=== PATIENT | female | born 1935 | race Caucasian/White ===

== ENCOUNTER 2023-06-24 11:25 | Observation (INO) | payer OTHER, SELFPAY ==
[2023-06-24] VITALS (24 sets, daily range): BP systolic 100–145; BP diastolic 68–117; PULSE 70–164; RESP 13–26; TEMP 36.4–36.6; O2SAT 94–100
--- NOTE | ~2023-06-24 | XR_ITS ---
EXAMINATION: XR chest 2V DATE: 06/24/2023 12:59 INDICATION: Shortness of breath and pneumonia TECHNIQUE: PA and lateral views of the chest were obtained. COMPARISON: None FINDINGS: Small bilateral pleural effusions with associated atelectasis and/or pneumonia in the bilateral lower lung zones. No pulmonary edema in the aerated portions of the lungs. No pneumothorax. Cardiomegaly. Calcified mediastinal lymph nodes consistent with old granulomatous disease. Moderate S-shaped scolio sis of the thoracic and lumbar spine with moderate thoracic and moderate to severe lumbar spondylosis . IMPRESSION: 1. Small bilateral pleural effusions with associated bibasilar atelectasis and/or pneumonia. 2. Cardiomegaly. Reviewed, dictated and finalized at location A. OR [employer]CH[employer] IMPRESSION: 1. Small bilateral pleural effusions with associated bibasilar atelectasis and/ or pneumonia. 2. Cardiomegaly.
[2023-06-24 11:57] LABS: Basophils Absolute Auto 0.1 K/mm3 (0.0-0.1); Basophils Percent Auto 0.6 % (0.2-1.2); Eosinophils Absolute Auto 0.1 K/mm3 (0-0.3); Eosinophils Percent Auto 0.7 % (0-4.4); Hematocrit 39.5 % (37.0-47.0); Hemoglobin 12.8 g/dL (12.0-15.0); Immature Granulocyte Absolute 0.04 K/mm3 (0.00-0.031); Immature Granulocyte Percent A 0.4 % (0-0.5); Lymphocytes Absolute Auto 1.06 K/mm3 (0.9-3.2); Lymphocytes Percent Auto 11.9 % (18.3-44.2); Mean Corpuscular HGB Conc 32.4 g/dl (32-36); Mean Corpuscular Hemoglobin 31.8 pg (26-34); Mean Platelet Volume 10.3 fl (7.4-10.4); Monocytes Percent Auto 10.7 % (2.6-8.5); Neutrophils Absolute Auto 6.8 K/mm3 (1.3-6.7); Neutrophils Percent Auto 75.7 % (45.5-73.1); Platelet Count Result 180 k/mm3 (150-375); Red Blood Count 4.03 M/mm3 (4.2-5.4); Red Cell Distribution Width 12.6 % (11.5-14.5); White Blood Count 8.9 K/mm3 (4.5-10.0)
[2023-06-24 12:07] LABS: Alanine Aminotransferase 44 U/L (6-35); Albumin Level 3.9 g/dL (3.5-5.1); Alkaline Phosphatase 89 U/L (38-126); Anion Gap 12 mmol/L (8-16); Aspartate Amino Transferase 39 U/L (14-36); Blood Urea Nitrogen 12 mg/dL (7-17); Calcium 9.2 mg/dL (8.4-10.2); Carbon Dioxide 21 mmol/L (22-30); Chloride 101 mmol/L (98-107); Estimated CRCL calculation 38 ml/min; Estimated Glomerular Filt Rate > 60; Glucose 148 mg/dL (65-110); Potassium 4.3 mmol/L (3.4-5.0); Sodium 134 mmol/L (137-145)
--- NOTE | 2023-06-24 14:05 | ED.SOB ---
HPI - SOB/Dyspnea General Chief Complaint: Shortness of Breath/Dyspnea Stated Complaint: Can't breath Time Seen by Provider: 06/24/23 14:01 Source: patient and family ( son) Limitations: no limitations History of Present Illness HPI Narrative: This is a 88-year-old female presents with complaint of difficulty breathing. Patient states this has been ongoing for the past week. She went to [facility] urgent care and was diagnosed with pneumonia. She was prescribed a 10 day course of Augmentin which she started on Sunday. She initially noticed some improvement but then seemed to be worsening again. She denies any history of pneumonia, no recent antibiotic usage, is not on an H2 enedelia or PPI. She denies any associated chest pain or fevers. She does have difficulty lying flat in addition to shortness of breath both occasionally at rest as well as on exertion. She denies any paroxysmal nocturnal dyspnea. She has had a nonproductive cough. General she has been having fatigue associated with this denies any myalgias. No underlying respiratory conditions. Does not follow with a data support specialist or cardiothoracic surgeon though has a known mitral valve regurgitation. She does note that she has not yet taken her lisinopril or hydrochlorothiazide today. she denies any lower extremity edema. PCP is through [facility]. Related Data Allergies Allergy/AdvReac Type Severity Reaction Status Date / Time No Known Allergies Allergy Mild Verified 06/24/23 14:05 [facility] Past Medical History Medical History (Updated 06/24/23 @ 18:12 by Brenda Howard MD) Hypertension Mitral valve regurgitation Exam Narrative: GENERAL: Well-appearing, well-nourished, and in no acute distress. appears younger than stated age HEAD: Normocephalic, atraumatic. EYES: no scleral icterus or injection ENT: Nares clear, no rhinorrhea or epistaxis. NECK: Supple. no meningismus CHEST: Lung sounds diminished at the left base. No respiratory distress. speaking in full sentences. HEART: Tachycardic irregularly irregular rhythm. Systolic Murmur heard. Normal peripheral pulses except for being irregularly irregular. ABDOMEN: Soft, nondistended, EXTREMITIES: Normal range of motion. No edema. SKIN: Warm, dry, no rash. NEURO: No focal deficits. Alert and oriented x3. PSYCH: Normal mood and affect. Course Vital Signs Vital signs: Vital Signs Temperature 97.6 F 06/24/23 11:39 Pulse Rate 70 06/24/23 11:39 Respiratory Rate 20 06/24/23 11:39 Blood Pressure 144/99 H 06/24/23 11:39 Pulse Oximetry 97 06/24/23 11:39 Oxygen Delivery Room Air 06/24/23 11:39 Temperature 97.6 F 06/24/23 11:39 Pulse Rate 113 H 06/24/23 16:30 Respiratory Rate 20 06/24/23 16:30 Blood Pressure 137/98 H 06/24/23 16:30 Pulse Oximetry 98 06/24/23 16:30 Oxygen Delivery Room Air 06/24/23 14:00 MDM - SOB/Dyspnea MDM Narrative Medical decision making narrative: This is an 88-year-old female who presents to the emergency department with concern for nonproductive cough and difficulty breathing of 1 week's duration. She was diagnosed with pneumonia earlier this week at an urgent care and prescribed a 10 day course of Augmentin which she started on Sunday with initial improvement but now worsening. She is also having orthopnea but denies any paroxysmal nocturnal dyspnea. No chest pain fevers. Chest x-ray shows pneumonia with associated pleural effusion. DRIP Score - predicts risk for CAP d/t drug-resistant pathogens Antibiotic use within 60 days (No 0, Yes +2): 0 terminal supervisor care resident (No 0, Yes +2): 0 Tube feeding (No 0, Yes +2): 0 Prior drug-resistant pneumonia Dx within 1 year (No 0, Yes +2): 0 Hospitalization within 60 days (No 0, Yes +1): 0 Chronic pulmonary disease (No 0, Yes +1): 0 Poor functional status (No 0, Yes +1): 0 H2 enedelia or PPI within 14 days (No 0, Yes +1): 0 Active wound care at time of admission (No 0, Yes +1): 0 M
--- NOTE | 2023-06-24 14:14 | ECG_ITS ---
Measurements Intervals [place] Rate: 162 P: SD: 0 QRS: -8 QRSD: 87 T: 15 QT: 270 QTc: 443 Interpretive Statements ATRIAL FIBRILLATION WITH RAPID VENTRICULAR RESPONSE ABNORMAL RHYTHM ECG NO PREVIOUS ECG AVAILABLE FOR COMPARISON Electronically Signed On 06-25-2023 13:03:53 COMPUTER INSTRUCTOR by Paul Sheehan M.D.
[2023-06-24] MEDS: dilTIAZem HCl INJ 25 MG/5 ML VIAL 15 MG IV PUSH (14:37)
[2023-06-24 15:00] LABS: NT Pro B Type Natriuretic Pept 2620 pg/mL (19.9-100); Troponin I < 0.012 ng/mL (0.000-0.034)
[2023-06-24 15:11] LABS: Influenza A QL RT-PCR Negative (Negative); Influenza B QL RT-PCR Negative (Negative); RSV RNA, RT-PCR Negative (Negative); SARS-CoV-2 RNA PCR Negative (Negative)
[2023-06-24] MEDS: dilTIAZem HCl INJ 25 MG/5 ML VIAL IV PUSH (16:00)
[2023-06-24] MEDS: FUROSEMIDE INJ 40 MG/4 ML VIAL 20 MG IV PUSH (16:35)
[2023-06-24] MEDS: AZITHROMYCIN 500 MG/NS 250 ML 500 MG/250 ML BAG 250 MG IVPB (17:00)
--- NOTE | 2023-06-24 20:24 | ADMGEN ---
This patient, Cris Díaz, was admitted to IMU Room 205-02. Patient/family oriented to hospital policies and general routines including ID bracelet, bed and alarms, visiting hours, pain management, procedures, bathroom and other care routines, personal items, smoking policy, room service/diet, and visiting hours. Information on how to activate the Rapid Response Team has been discussed. Patient/Family are encouraged to report perceived risks to care and to ask questions if they do not understand what they are told or what they should do.
[2023-06-24] MEDS: APIXABAN 5 MG TABLET PO (20:53)
[2023-06-24] MEDS: dilTIAZem HCL 12 HR 60 MG CAP.12HR PO (20:53)
[2023-06-24] MEDS: dilTIAZem 100 MG/100 ML 100 MG/100 ML BAG IV CONT (22:59)
[2023-06-25] VITALS (20 sets, daily range): BP systolic 91–130; BP diastolic 62–95; PULSE 75–129; RESP 16–19; TEMP 36.5–36.9; O2SAT 94–98
--- NOTE | 2023-06-25 00:13 | PM.IMHP ---
H&P: HPI History of Present Illness Date/Time: 06/24/23 22:00 Chief Complaint: Shortness of breath. Narrative: This is a very pleasant 88-year-old female with hypertension and mitral valve regurgitation who presented to the emergency department via private vehicle for evaluation of shortness of breath. The patient provides the following history. She has not been feeling well for nearly 3 weeks with respiratory symptoms. She was seen at [facility] urgent care this past Sunday at which time she was diagnosed with pneumonia and was prescribed a 10 day course of Augmentin. She initially thought she was improving however the last several days she has become increasingly short of breath with lesser and lesser exertion. She also reports having difficulties lying flat due to shortness of breath and she has been having to sit up to sleep the last few days. She has feelings of anxiety which she thinks is due to the shortness of breath. She denies fever, syncope, near syncope, exertional chest pain, palpitations, sensations of racing heart, pleuritic pain, nausea, vomiting, sweats, edema, and calf pain. On arrival to the ED she was found to be in atrial fibrillation with rapid ventricular response. She received diltiazem IV push improvement in her rates. ED physician discussed the case with the on-call greenhouse worker who recommended starting her on anticoagulation and p.o. diltiazem. She is being admitted in this setting for further workup. With further questioning she reports drinking 2 cups of coffee a day and between 2 to 3 alcoholic beverages a day. She denies any drinking since supplements. She has no known history of thyroid disease. She denies concerns for sleep apnea. Review of Systems Review of Systems: Twelve systems were reviewed and are negative except for as per HPI. [facility] Past Medical History Medical History (Updated 06/25/23 @ 00:20 by Trini Liu PA-C) Hypertension Mitral valve regurgitation Surgical History Surgical History (Updated 06/25/23 @ 00:18 by Trini Liu PA-C) No history of major surgery within 1 month Family History Family History (Updated 06/25/23 @ 00:18 by Trini Liu PA-C) Other Family history non-contributory Social History Social History (Updated 06/25/23 @ 00:18 by Trini Liu PA-C) Social History: Surrogate medical decision maker: Lonny Díaz, son. Code status: Full code. Smoking status: Never smoker Alcohol intake: current Drinks per week: 14 Substance use: never Substance use type: does not use Lack of Transportation: No Lack of Food: Never True Current Housing: I Have Housing Concerned About Future Housing: No Difficulty Paying Gas/Electric Bills: No Difficulty Paying for Meds: No Currently Unemployed: No Education: Bachelor's Degree Difficulty w/ Childcare or Family Care: No Spiritual care concerns: No Meds Home Medications and Allergies Home Medications Medication Instructions Recorded Confirmed Type amoxicillin 875 mg-potassium 1 tablet PO BID 06/24/23 06/24/23 History clavulanate 125 mg tablet hydrochlorothiazide 25 mg tablet 25 mg PO DAILY 06/24/23 06/24/23 History lisinopril 20 mg tablet 20 mg PO DAILY 06/24/23 06/24/23 History Allergies Allergy/AdvReac Type Severity Reaction Status Date / Time No Known Allergies Allergy Mild Verified 06/24/23 14:05 Vital Signs Vital Signs - 24 hr 06/24/23 11:39 06/24/23 14:00 06/24/23 14:00 Temperature 97.6 F Pulse Rate 70 144 H Respiratory Rate 20 Blood Pressure 144/99 H Pulse Oximetry 97 97 Oxygen Delivery Room Air Room Air 06/24/23 16:08 06/24/23 13:57 06/24/23 13:58 Temperature Pulse Rate 103 H 149 H Respiratory Rate 19 23 H Blood Pressure 100/68 137/110 H Pulse Oximetry 94 Oxygen Delivery 06/24/23 14:00 06/24/23 14:01 06/24/23 14:31 Temperature Pulse Rate 151 H 155 H 164 H Respiratory Rate 17 20 18 Blood Press
--- NOTE | 2023-06-25 00:26 | ECHO_ITS ---
Patient Info Name: Cris Díaz Age: 88 years : 1935 Gender: Female Ht: 65 in Wt: 142 lbs BSA: 1.73 m2 HR: 118 bpm BP: 121 / 76 mmHg Heart Rhythm: Atrial Fibrillation Technical Quality: Fair Exam Date: 06/25/2023 9:25 AM Exam Location: Echo Lab Patient Status: Inpatient Admit Date: 06/24/2023 Staff Ordering Physician: Trini Liu PA-C Transportation Operations Manager: Odalys Jacques RDCS Attending Provider: Stanislav Aragon MD Referring Physician: Noe DAVILA; Exam Type: CA echo dop color flow w con Study Info Indications - CARDIOMEGALY, AFIB, MR Complete two-dimensional, color flow and Doppler transthoracic echocardiogram is performed with contrast to opacify the left ventricle and to improve the deliniation of the left ventricle endocardial borders. Contrast/Agitated Saline Contrast/Ag. Saline: Definity Amount: 2.00 ml Administered By: Odalys Jacques RDCS Existing IV Access: Yes IV Access Condition: patent with no signs of infiltration Summary 1. Definity contrast used to improve examination. 2. Mild LV enlargement with systolic function that appears to be low-normal range, assessment difficult given AF with RVR. 3. Massive biatrial dilation. 4. Small amount of mitral and tricuspid regurgitation. 5. Atrial fibrillation. Left Ventricle Left ventricular chamber dimension is mildly enlarged. Left ventricular systolic function is mildly reduced, estimated at 45-50%. The left ventricular diastolic function is indeterminate. Right Ventricle Right ventricular chamber dimension is normal. Left Atria Left atrial chamber dimension is severely enlarged. Right Atria Right atrial chamber dimension is severely enlarged. Aortic Valve The aortic valve is trileaflet. There is mild aortic valve sclerosis. Pulmonic Valve The pulmonic valve is not well visualized. Mitral Valve The mitral valve has normal leaflets. There is mild mitral valve regurgitation. Tricuspid Valve The tricuspid valve leaflets are normal. There is mild tricuspid valve regurgitation. Pericardium/Pleural The pericardium appears normal. Aorta The aortic root size at the sinus of Valsalva is normal. Left Ventricular Outflow Tract Name Value Normal LVOT 2D LVOT Diameter 1.98 cm LVOT Doppler LVOT Peak Gradient 2 mmHg LVOT Mean Gradient 1 mmHg LVOT VTI 11.48 cm LVOT VTI/AV VTI Ratio 0.32 LVOT Stroke Volume 35.24 ml LVOT CO 3.91 l/min LVOT CI 2.27 L/min/m2 Pulmonic Valve Name Value Normal RVOT Doppler RVOT Peak Gradient 1 mmHg PV Doppler PV Peak Gradient 2 mmHg Mitral Valve
[2023-06-25 05:51] LABS: Hematocrit 33.8 % (37.0-47.0); Hemoglobin 11.2 g/dL (12.0-15.0); Mean Corpuscular HGB Conc 33.1 g/dl (32-36); Mean Corpuscular Hemoglobin 31.9 pg (26-34); Mean Corpuscular Volume 96.3 fl (80-100); Mean Platelet Volume 10.8 fl (7.4-10.4); Platelet Count Result 160 k/mm3 (150-375); Red Blood Count 3.51 M/mm3 (4.2-5.4); Red Cell Distribution Width 12.6 % (11.5-14.5); White Blood Count 7.9 K/mm3 (4.5-10.0)
[2023-06-25 05:56] LABS: Anion Gap 11 mmol/L (8-16); Blood Urea Nitrogen 13 mg/dL (7-17); Carbon Dioxide 20 mmol/L (22-30); Chloride 103 mmol/L (98-107); Estimated CRCL calculation 38 ml/min; Estimated Glomerular Filt Rate > 60; Glucose 112 mg/dL (65-110); Magnesium 1.8 mg/dL (1.6-2.3); Potassium 3.9 mmol/L (3.4-5.0); Sodium 134 mmol/L (137-145)
[2023-06-25] MEDS: dilTIAZem 100 MG/100 ML 100 MG/100 ML BAG 10 MG IV CONT (08:00)
--- NOTE | 2023-06-25 09:13 | PM.CNCAR ---
Assessment and Plan Assessment and plan (1) Atrial fibrillation with rapid ventricular response: Code(s): I48.91 - Unspecified atrial fibrillation Status: Acute Assessment and Plan: New diagnosis of atrial fibrillation in the setting of acute illness with pneumonia. Chronicity is unknown. Her heart rate has improved with diltiazem but is still suboptimally controlled. I discussed the pathophysiology of atrial fibrillation and management strategies including rate control versus rhythm control. Since the onset of her arrhythmia is unknown and she has not been anticoagulated, will pursue with rate control strategy for now. She is asymptomatic. Continue diltiazem drip for now and initiate low-dose metoprolol 25 mg q.12 hours with the intention of weaning off diltiazem drip. Will up titrate metoprolol dose is as needed based on heart rate blood pressure response. She has already been started on systemic anticoagulation with apixaban 5 mg q.12 hours which is appropriate. She has a [id number] score of 4 (age, female gender, HTN). Echo is pending TSH normal Continue telemetry for now (2) Hypertension: Code(s): I10 - Essential (primary) hypertension Status: Acute Assessment and Plan: At goal. (3) Cardiomegaly: Code(s): I51.7 - Cardiomegaly Status: Acute Assessment and Plan: Echo is pending. Further recommendations to follow review of the study. (4) Mitral valve regurgitation: Code(s): I34.0 - Nonrheumatic mitral (valve) insufficiency Status: Acute Assessment and Plan: Patient reported history of mitral valve regurgitation and does have murmur on exam consistent with mitral valve regurgitation. Echocardiogram has been ordered and will be reviewed. History of Present Illness History of Present Illness Consult date/time: 06/25/23 09:13 Requesting physician: Brenda Howard MD Consult reason: atrial fibrillation Reason For Visit: PNA Narrative: Cris Díaz is an 88 year old female who is hospitalized for shortness of breath. She has a history of mitral valve regurgitation and hypertension. She started experiencing some mild shortness of breath at the end of April. Her shortness of breath became progressively worse and last week she went to an urgent care where she was diagnosed with pneumonia. She was placed on a 10 day course of antibiotics. However, her symptoms persisted and she was also experiencing orthopnea and significant dyspnea with the exertion. Therefore, she presented to the emergency department. She was found to be in atrial fibrillation with rapid ventricular response on her initial EKG. She denies feeling any palpitations, chest pain. She has been placed on a diltiazem drip. However, her heart rate is better than at presentation but remains elevated, generally in the 120s. At the time of my visit with her she is sitting comfortably in bed and denies feeling any shortness of breath, palpitations, chest pain. Review of Systems Review of Systems: All systems reviewed & are unremarkable except as noted in HPI and below PMFSH Past Medical History Medical History Hypertension Mitral valve regurgitation Surgical History Surgical History No history of major surgery within 1 month Family History Family History Other Family history non-contributory Social History Social History Social History: Surrogate medical decision maker: Lonny Díaz, son. Code status: Full code. Smoking status: Never smoker Alcohol intake: current Drinks per week: 14 Substance use: never Substance use type: does not use Lack of Transportation: No Lack of Food: Never True Current Housing: I Have Housing Concerned
[2023-06-25] MEDS: PERFLUTREN LIPID MICROSPHERES 1.5 ML VIAL DILUTED TO 10 ML TOTAL VOLUME IV PUSH (09:55)
[2023-06-25] MEDS: AMOXICILLIN/CLAVULANATE K 875-125 MG TAB 1 TABLET PO ×2 (10:15→17:29)
[2023-06-25] MEDS: lisinopriL 20 MG TABLET PO (10:15)
[2023-06-25] MEDS: APIXABAN 5 MG TABLET PO ×2 (10:15→20:37)
--- NOTE | 2023-06-25 11:57 | IVDEFINITY ---
Prior to administration of IV Definity the patient was educated on the risks and benefits of the imaging enhancing agent including potential adverse side effects. The patient verbalized understanding. Allergies were verified. No exclusion criteria were identified and at least one of the following inclusion criteria were met: 1) physician request, 2) patient technically difficult to image (per the [place] [employer] guidelines of two or more segments not discernable within the apical view), or 3) questionable left ventricular function. ?
[2023-06-25] MEDS: METOPROLOL TARTRATE 25 MG TABLET PO ×2 (12:55→20:37)
--- NOTE | 2023-06-25 13:43 | PM.IMPN ---
Progress Note: A&P Assessment and Plan (1) Atrial fibrillation with rapid ventricular response: Code(s): I48.91 - Unspecified atrial fibrillation Status: Acute Assessment and Plan: 06/25/2023: patient initially showing AFib RVR with a rate of 162 she was given a dose of IV push Cardizem and started on a Cardizem infusion she was started on apixaban and metoprolol for rate control she was given a dose of Lasix 20 mg IV push in the ED echo was obtained and is pending cardiology consulted (2) History of recent pneumonia: Code(s): Z87.01 - Personal history of pneumonia (recurrent) Status: Acute Assessment and Plan: 06/25/2023: patient was seen [facility] this past Sunday and was diagnosed with pneumonia and prescribed a 10 day course of Augmentin. chest x-ray showing small bilateral pleural effusions with associated bibasilar atelectasis and or pneumonia patient will continue on Augmentin oral (3) Hypertension: Code(s): I10 - Essential (primary) hypertension Status: Acute Assessment and Plan: 06/25/2023: patient restarted on lisinopril 20 mg p.o. daily Time Spent With Patient Time with patient: Greater than 35 minutes Subjective Date/time seen: 06/25/23 13:43 Interval history: This is an 88 year old female who presented to the hosptial on 06/24/23 for evaluation of shortness of breath. workup in the ED included EKG which shown AFib with initial rate of 162. She also had a chest x-ray which showed small bilateral pleural effusion with associated bibasilar atelectasis and or pneumonia. labs were essentially unremarkable other a sodium level 134, carbon dioxide 21 AST 30 ALT 44 troponin was negative, alk-phos 89, proBNP 2620, TSH 2.7. Respiratory panel was negative for influenza, RSV, COVID She was found to be in A fib RVR. In ER she was given diltiazem IV push diltiazem drip. cardiology was consulted. . On examination today patient alert and oriented x3, lying in the bed. Patient is afebrile, currently on room air, HR 75-90, blood pressures ranging 91/62-130/79. she denies any fever, chills, shortness of breath, chest pain, nausea, vomiting, diarrhea abdominal pain. Labs today WBC 7.9, hemoglobin 11.2 hematocrit 33.8 sodium level 134, potassium 3.9, bicarb 20. Echo was obtained and is pending. Patient was placed apixaban 5 mg b.i.d. in metoprolol for rate control. She continues with Cardizem drip. She will remain on continuous cardiac monitoring and in the IMU today. Review of Systems Review of Systems: Twelve systems were reviewed and are negative except for as per HPI. Constitutional: Constitutional: Reports as per HPI and Reports no additional constitutional complaints Eyes: Eyes: Reports as per HPI and Reports no additional eye complaints ENT: Reports system reviewed and no additional complaints, except as documented and Reports as per HPI Cardiovascular: Cardiovascular: Reports as per HPI and Reports no additional cardiovascular complaints Respiratory: Respiratory: Reports as per HPI and Reports no additional respiratory complaints Gastrointestinal: Gastrointestinal: Reports as per HPI and Reports no additional gastrointestinal complaints Genitourinary: Genitourinary: Reports no additional female genitourinary complaints and Reports as per HPI Musculoskeletal: Musculoskeletal: Reports no additional musculoskeletal complaints and Reports as per HPI Integumentary/Breasts: Skin/Breast: Reports system reviewed and no additional complaints, except as docu and Reports as per HPI Neurologic: Reports system reviewed and no additional complaints, except as documented and Reports as per HPI Psychiatric: Psychiatric: Reports no additional psychiatric complaints and Reports as per HPI Exam Narrative: General: In no acute distress, well nourished Head: atraumatic, no encephalopathy Eyes: EOMI, PERRLA, sclera clear ENT:
--- NOTE | 2023-06-25 19:27 | PC.NURSE ---
Telemonitor showed that pt's HR went down to the 20's -40's and was still in Afib. When checking on pt, she was asymptomatic. BP was 112/67. Examining the alarms, the system counted PVC's instead of QRS complexes resulting in a lower rate than what was accurate.
[2023-06-25] MEDS: dilTIAZem 100 MG/100 ML 100 MG/100 ML BAG IV CONT (23:53)
[2023-06-26] VITALS (12 sets, daily range): BP systolic 97–139; BP diastolic 64–95; PULSE 79–125; RESP 16–20; TEMP 36.3–36.8; O2SAT 92–96
--- NOTE | 2023-06-26 08:24 | PM.IMPN ---
Progress Note: A&P Assessment and Plan (1) Atrial fibrillation with rapid ventricular response: Code(s): I48.91 - Unspecified atrial fibrillation Status: Acute Assessment and Plan: 06/25/2023: patient initially showing AFib RVR with a rate of 162 she was given a dose of IV push Cardizem and started on a Cardizem infusion she was started on apixaban and metoprolol for rate control she was given a dose of Lasix 20 mg IV push in the ED echo was obtained and is pending cardiology consulted 06/26/23: Patient still in AFib, with heart rate ranging 105-125 Patient remains on Diltiazem infusion at 5 mg echo showing mildly reduced LV systolic function with EF of 45-50%, small amount 1 control tricuspid regurgitation, massive biatrial dilation, RV function normal. Continue Metoprolol, may still need adjustments per cardiology Cardiology following. (2) History of recent pneumonia: Code(s): Z87.01 - Personal history of pneumonia (recurrent) Status: Acute Assessment and Plan: 06/25/2023: patient was seen and [facility] urgent care this past Sunday and was diagnosed with pneumonia and prescribed a 10 day course of Augmentin. chest x-ray showing small bilateral pleural effusions with associated bibasilar atelectasis and or pneumonia patient will continue on Augmentin oral 06/26/23: Continue with current treatment plan patient remains on room air, no acute distress (3) Hypertension: Code(s): I10 - Essential (primary) hypertension Status: Acute Assessment and Plan: 06/25/2023: patient restarted on lisinopril 20 mg p.o. daily 06/26/23: blood pressure ranging 97/78 to 126/64 continue with current treatment plan Time Spent With Patient Time with patient: 25 - 35 minutes Subjective Date/time seen: 06/26/23 08:24 Interval history: 06/25/23: This is an 88 year old female who presented to the hosptial on 06/24/23 for evaluation of shortness of breath. workup in the ED included EKG which shown AFib with initial rate of 162. She also had a chest x-ray which showed small bilateral pleural effusion with associated bibasilar atelectasis and or pneumonia. labs were essentially unremarkable other a sodium level 134, carbon dioxide 21 AST 30 ALT 44 troponin was negative, alk-phos 89, proBNP 2620, TSH 2.7. Respiratory panel was negative for influenza, RSV, COVID She was found to be in A fib RVR. In ER she was given diltiazem IV push diltiazem drip. cardiology was consulted. On examination today patient alert and oriented x3, lying in the bed. Patient is afebrile, currently on room air, HR 75-90, blood pressures ranging 91/62-130/79. she denies any fever, chills, shortness of breath, chest pain, nausea, vomiting, diarrhea abdominal pain. Labs today WBC 7.9, hemoglobin 11.2 hematocrit 33.8 sodium level 134, potassium 3.9, bicarb 20. Echo was obtained and is pending. Patient was placed apixaban 5 mg b.i.d. in metoprolol for rate control. She continues with Cardizem drip. She will remain on continuous cardiac monitoring and in the IMU today. 06/26/23: On examination today patient Heart rate 102-125, blood pressure ranging 97/78 to 126/64, she is currently afebrile, she is currently room air. Labs today reveal white blood cell count 7.9, hgb 11.2, hct33.8, sodium 134 potassium 3.9 bicarb 20, BUN 13, creatinine 0.8, blood sugars ranging 112-148. Neck was obtained yesterday which is showing mildly reduced LV systolic function with EF 45-50% small amount mitral and tricuspid regurgitation massive biatrial dilation, are function is normal. Review of Systems Review of Systems: Twelve systems were reviewed and are negative except for as per HPI. Constitutional: Constitutional: Reports as per HPI and Reports no additional constitutional complaints Eyes: Eyes: Reports as per HPI and Reports no additional eye complaints ENT: Reports system reviewed and no a
[2023-06-26] MEDS: APIXABAN 5 MG TABLET PO (09:23)
[2023-06-26] MEDS: AMOXICILLIN/CLAVULANATE K 875-125 MG TAB 1 TABLET PO (09:23)
[2023-06-26] MEDS: METOPROLOL TARTRATE 25 MG TABLET PO (09:23)
--- NOTE | 2023-06-26 09:39 | PM.PNCARD ---
Progress Note: A&P Assessment and Plan (1) Atrial fibrillation with rapid ventricular response: Code(s): I48.91 - Unspecified atrial fibrillation Status: Acute Assessment and Plan: New diagnosis of atrial fibrillation in the setting of acute illness with pneumonia. Chronicity is unknown. Her heart rate has improved with diltiazem but is still suboptimally controlled. I discussed the pathophysiology of atrial fibrillation and management strategies including rate control versus rhythm control. Since the onset of her arrhythmia is unknown and she has not been anticoagulated, will pursue with rate control strategy for now. She is asymptomatic. Diltiazem drip discontinued thismorning Increase metoprolol to 37.5 mg q.12 hours She has already been started on systemic anticoagulation with apixaban 5 mg q.12 hours which is appropriate. She has a [id number] score of 4 (age, female gender, HTN). Echo showed mildly reduced LVSF, EF 45 - 50%, mild MR and TR TSH normal OK for discharge today from a cardiac standpoint. (2) Hypertension: Code(s): I10 - Essential (primary) hypertension Status: Acute Assessment and Plan: At goal. (3) Cardiomegaly: Code(s): I51.7 - Cardiomegaly Status: Acute Assessment and Plan: As above, mildly reduced LVSF. No signs of decompensated heart failure on exam. (4) Mitral valve regurgitation: Code(s): I34.0 - Nonrheumatic mitral (valve) insufficiency Status: Acute Assessment and Plan: Mild MR. Outpatient follow up. Subjective Date/time seen: 06/26/23 09:39 Interval history: Cardiology follow-up for atrial fibrillation She feels well this morning. No shortness of breath, chest pain, palpitations. Rate generally well controlled 90-110 for the most part. Diltiazem drip discontinued earlier this morning Review of Systems Review of Systems: All systems reviewed & are unremarkable except as noted in HPI and below Exam Const: General: comfortable, no acute distress, alert and awake Orientation/consciousness: patient oriented x3 HENMT: Head: normal to inspection Eyes: General: appearance normal, both eyes and all related structures Pupils: Equal, round and reactive pupils present Neck: Neck: normal visual inspection, supple and no JVD Carotids: normal carotid upstroke Resp: Effort & Inspection: normal respiratory effort Auscultation: crackles bilateral in the lower lung platt Cardio: Rate: regular rate Rhythm: abnormal rhythm irregularly irregular Heart sounds: S1 normal heart sound present, S2 normal heart sound present and Murmur heart sound present systolic GI: Auscultation: normal bowel sounds Skin: General skin exam: normal color Neuro: General: patient oriented x3 Cranial nerves: Yes Equal, round and reactive pupils present Extrem: General: normal to inspection Other: No edema Psych: Appearance: grossly normal Mental Status: mental status grossly normal Objective Data Vital Signs Vital Signs: Vital Signs - 24 hr 06/25/23 11:13 06/25/23 12:55 06/25/23 12:56 Temperature 36.6 C Pulse Rate 125 H 103 H 109 H Respiratory Rate 18 Blood Pressure 130/79 Pulse Oximetry 95 Oxygen Delivery 06/25/23 12:00 06/25/23 15:09 06/25/23 10:00 Temperature 36.6 C Pulse Rate 75 112 H Respiratory Rate 17 Blood Pressure 91/62 L Pulse Oximetry 96 Oxygen Delivery Room Air 06/25/23 12:00 06/25/23 14:00 06/25/23 16:00 Temperature Pulse Rate 114 H 94 84 Respiratory Rate Blood Pressure Pulse Oximetry Oxygen Delivery 06/25/23 16:00 06/25/23 18:00 06/25/23 20:05 Temperature 36.5 C Pulse Rate 96 79 Respiratory Rate 18 Blood Pressure 111/70 Pulse Oximetry 96 Oxygen Delivery Room Air 06/25/23 20:37 06/25/23 20:00 06/25/23 20:00 Temperature Pulse Rate 90 93 93 Respiratory Rate 18 Blood Pressure Pulse Oximetry 96 Oxygen
[2023-06-26] MEDS: METOPROLOL TARTRATE 12.5 MG TABLET PO (11:40)
--- NOTE | 2023-06-27 01:14 | PM.DS ---
DS: Admitting Diagnosis Discharge Date 06/26/23 Admitting Diagnosis A fib RVR Mitral valve regurgitation History of recent pneumonia hypertension Cardiomegaly DS: Discharge Diagnosis Discharge Diagnosis (1) Atrial fibrillation with rapid ventricular response: Code(s): I48.91 - Unspecified atrial fibrillation Status: Acute (2) History of recent pneumonia: Code(s): Z87.01 - Personal history of pneumonia (recurrent) Status: Acute (3) Hypertension: Code(s): I10 - Essential (primary) hypertension Status: Acute DS: Summary Hospital Course Reason for hospitalization: A fib RVR Continued treatment for Community Acquired pneumonia Hospital Course: This is an 88 year old female who presented to the hosptial on 06/24/23 for evaluation of shortness of breath. workup in the ED included EKG which shown AFib with initial rate of 162. She also had a chest x-ray which showed small bilateral pleural effusion with associated bibasilar atelectasis and or pneumonia. labs were essentially unremarkable other a sodium level 134, carbon dioxide 21 AST 30 ALT 44 troponin was negative, alk-phos 89, proBNP 2620, TSH 2.7. Respiratory panel was negative for influenza, RSV, COVID She was found to be in A fib RVR. In ER she was given diltiazam drip and cardiology was consulted. On examination today patient is alert and oriented x3, sitting on the side of the bed. She denies any fever, chills, nausea, vomiting, diarrhea, abdominal pain, shortness of breath or chest pain. Patient remains in A fib but is rate controlled, Heart rate 102-125, blood pressure ranging 97/78 to 126/64, she is currently afebrile, she is currently room air. Labs today reveal white blood cell count 7.9, hgb 11.2, hct33.8, sodium 134 potassium 3.9 bicarb 20, BUN 13, creatinine 0.8, blood sugars ranging 112-148. Echo was obtained yesterday which is showing mildly reduced LV systolic function with EF 45-50% small amount mitral and tricuspid regurgitation massive biatrial dilation, RV function is normal. Cardiology placed patient on Metoprolol 37.5 mg and Eliquis 5 mg BID. She is stable for discharge at this time. She will need to follow up in 1 month with Cardiology. Final diagnosis: Atrial fibrillation with RVR and Community Acquired Pneumonia Status at Discharge Cognitive/behavioral status at discharge: Alert and oriented x3 Functional status at discharge: independent ambulation Overall status at discharge: patient is progressing back to baseline Time Spent with Patient Time attestation: Total time spent providing and/or coordinating discharge services: Time spent: Greater than 30 minutes Exam Narrative: General: In no acute distress, well nourished Head: atraumatic, no encephalopathy Eyes: EOMI, PERRLA, sclera clear ENT: moist mucous membranes, nasal passages clear Neck: supple, no JVD, no adenopathy, trachea midline Cardiac: Normal S1 and S2. Murmur noted. No gallops or friction rubs, peripheral pulses intact. Respiratory: Lungs clear to auscultation, no adventitious lung sounds Gastrointestinal: soft, non-distended, non-tender, normoactive bowel sounds. : voiding without difficulty. Extremities: moves all extremities well, no edema, good ROM, strength 5/5 Skin: clean, dry, intact. No wounds or lesions. Neuro: Alert and oriented x4, cranial nerves intact, no neuro deficits. Psych: normal mood, normal affect, interactive DS: Data Data Completed and Pending Completed studies during hospitalization: Chest x-ray Echo Pending studies at discharge: None Labs on day of discharge: CBC, CMP Discharge Plan Discharge Attending physician on discharge: Meliza Crockett Consulting providers: Santana Zimmer Discharging Clinician: Tila Sahu Anticipated Discharge Date/Time: 06/26/23 12:33 Patient Disposition: Home, Self-Care Activity: as tolerated Diet: as tolerated Discharge Instructions: You were diagnosed w
== END 2023-06-26 15:18 | disposition home or self-care (01) ==
LOC: ANHED 18:12 → ANHIMU 20:05
PROVIDERS: General Practice; Physician Assistant; Admitting Provider Family Medicine; Emergency Provider Student in an Organized Health Care Education/Training Program; Visit Provider Student in an Organized Health Care Education/Training Program
DX: I48.91 Unspecified atrial fibrillation (principal); I11.0 Hypertensive heart disease with heart failure; I50.9 Heart failure, unspecified; Z87.01 Personal history of pneumonia (recurrent); J90 Pleural effusion, not elsewhere classified; I34.0 Nonrheumatic mitral (valve) insufficiency; Z20.822 Contact with and (suspected) exposure to COVID-19; R06.01 Orthopnea; F41.9 Anxiety disorder, unspecified; F10.90 Alcohol use, unspecified, uncomplicated; Z79.899 Other long term (current) drug therapy
CPT/HCPCS: 36415; 71046; 80048; 80053; 83735; 83880; 84443; 84484; 85025; 85027; 87637; 93005; 96365; 96366; 96367; 96375; 96376; 99285; A9270; C8929; G0378; J0456; J0696; J1940; Q9957

== ENCOUNTER 2023-07-11 11:55 | Outpatient (CLI) | payer OTHER, SELFPAY ==
[2023-07-11 13:03] LABS: Anion Gap 10 mmol/L (8-16); Blood Urea Nitrogen 29 mg/dL (7-17); Calcium 9.5 mg/dL (8.4-10.2); Carbon Dioxide 31 mmol/L (22-30); Chloride 92 mmol/L (98-107); Estimated Glomerular Filt Rate 33; Glucose 104 mg/dL (65-110); Potassium 3.4 mmol/L (3.4-5.0); Sodium 133 mmol/L (137-145)
== END 2023-07-11 11:56 | disposition home or self-care (01) ==
PROVIDERS: Visit Provider Nurse Practitioner
DX: I42.0 Dilated cardiomyopathy (principal)
CPT/HCPCS: 36415; 80048

== ENCOUNTER 2023-11-22 12:16 | Outpatient (CLI) | payer OTHER, SELFPAY ==
--- NOTE | ~2023-11-22 | XR_ITS ---
XR chest 2V 11/22/2023 14:09 Indication: Adverse effect of amiodarone Procedure: 2 view chest Comparison: 06/24/2023 Findings: Severe scoliosis. Cardiomegaly. Left lung clear. Possible new right basilar nodule versus a typical appearance to costal cartilage calcification. Calcified granuloma present right lung base. T here is right basilar airspace disease which represent atelectasis or pneumonia. Impression: 1: Right basilar airspace disease may represent atelectasis or pneumonia. 2: New nodular density right lower thorax. Recommend correlation with CT chest to exclude parenchyma l nodule. Reviewed, dictated and finalized at location B. Impression: 1: Right basilar airspace disease may represent atelectasis or pneumonia. 2: New nodular density right lower thorax. Recommend correlation with CT chest to exclude parenchymal nodule.
--- NOTE | 2023-11-23 14:17 | WPDPFTINT ---
PFT Procedure Performed PFT Procedure Performed Plethysmography (Lung Vol) Diffusing Cap (DLCO) Flow Vol Loop Spirometry w/o Bronchodil PFT Interpretation This is a pulmonary function test with spirometry, plethysmography and diffusing capacity. The test was performed and results interpreted in accordance with the 2019 and 2005 ATS/ERS Task Force guidelines respectively using the Global Lung Function Initiative-2012 reference equations. Patient demonstrated good effort and cooperation. Reproducibility criteria were met. The quality of the spirometry maneuver was Grade B. Findings: Spirometry: The contour the expiratory flow tracing demonstrates a reproducible oscillating or sawtooth pattern. The contour the inspiratory flow tracing is normal. The FVC is 2.90 L, 120% predicted. The FEV1 is 1.58 L, 88% predicted. The FEV1: FVC ratio is 55%. Plethysmography: The total lung capacity is 5.13 L, 99% predicted. The functional residual capacity is 3.04 L, 100% predicted. The residual volume is 2.23 L, 86% predicted. Diffusing capacity: The diffusing capacity unadjusted for hemoglobin and carboxyhemoglobin is 11.2, 59% predicted. The diffusing capacity adjusted for alveolar volume is 2.72, 69% predicted. Impression: The contour the expiratory flow tracing demonstrates a reproducible oscillating or sawtooth pattern. This is usually generated either by air flow disturbances in the upper airway or from tremors of the respiratory muscles. This has been associated with sleep apnea, obesity, snorers without obstructive sleep apnea, upper airway injury, upper airway stenosis, tracheobronchomalacia, neuromuscular disorders with bulbar involvement, burn injury of the upper airway, diaphragmatic myoclonus, and herpes zoster of abdominal muscles. Clinical correlation is recommended. There is a mild obstructive abnormality with a normal FEV1. The lung volumes are normal. The diffusing capacity unadjusted for hemoglobin and carboxyhemoglobin is moderately decreased and normalizes when adjusted for alveolar volume. There are no prior studies for comparison
== END 2023-11-22 12:17 | disposition home or self-care (01) ==
LOC: ANHPFT 12:24
PROVIDERS: Visit Provider Nurse Practitioner
DX: R94.2 Abnormal results of pulmonary function studies (principal); T46.2X5A Adverse effect of other antidysrhythmic drugs, initial encounter
CPT/HCPCS: 71046; 94375; 94726; 94729

== ENCOUNTER 2023-12-18 13:54 | Outpatient (CLI) | payer OTHER, SELFPAY ==
[2023-12-18 14:59] LABS: Alanine Aminotransferase 33 U/L (6-35); Albumin Level 4.3 g/dL (3.5-5.1); Alkaline Phosphatase 107 U/L (38-126); Aspartate Amino Transferase 46 U/L (14-36); Bilirubin,Total 1.6 mg/dL (0.2-1.3)
== END 2023-12-18 13:55 | disposition home or self-care (01) ==
PROVIDERS: Visit Provider Nurse Practitioner
DX: I48.11 Longstanding persistent atrial fibrillation (principal); I51.9 Heart disease, unspecified; T46.2X5A Adverse effect of other antidysrhythmic drugs, initial encounter
CPT/HCPCS: 36415; 80076; 84443